=== PATIENT | male | born 1980 | race Caucasian/White ===

== ENCOUNTER 2020-07-20 15:15 | Outpatient (CLI) | payer OTHER ==
[2020-07-20] MEDS ORDERED: NONE PER PT (15:35)
== END 2020-07-20 23:59 | disposition home or self-care (01) ==
LOC: STAR 15:15
PROVIDERS: ATTEND Student in an Organized Health Care Education/Training Program
DX: Z20.822 Contact with and (suspected) exposure to COVID-19 (principal)
CPT/HCPCS: U0003

== ENCOUNTER 2020-07-26 07:32 | Day surgery (SDC) | payer OTHER ==
[2020-07-20 15:35] VITALS: BP 156/89
[~2020-07-26] VITALS: Ht 185.4 cm; Wt 107.0 kg
[~2020-07-26 07:32] MED LIST: NONE PER PT
[2020-07-26] MEDS ORDERED: LACTATED RINGERS 1,000 ML IV SCH (08:00)
[2020-07-26] MEDS ORDERED: CHLORHEXIDINE 15 ML UDC PO ONE (08:00)
[2020-07-26] MEDS ORDERED: MIDAZOLAM 1 MG/ML, 2ML ONE (08:31)
[2020-07-26] MEDS ORDERED: FENTANYL PF 250 MCG/5ML ONE (08:31)
[2020-07-26] MEDS ORDERED: GLYCOPYRROLATE 0.2MG/1ML, 5ML ONE (08:49)
[2020-07-26] MEDS ORDERED: PROPOFOL 10 MG/ML, 20ML ONE (08:49)
[2020-07-26] MEDS ORDERED: NEOSTIGMINE 1 MG/ML, 10ML ONE (08:49)
[2020-07-26] MEDS ORDERED: CEFAZOLIN 1,000 MG ONE (08:49)
[2020-07-26] MEDS ORDERED: ROCURONIUM 10MG/ML,5ML ONE (08:49)
[2020-07-26] MEDS ORDERED: EPINEPHRINE 1 MG/ML, 1ML ONE (10:24)
[2020-07-26] MEDS ORDERED: BUPIVACAINE/PF 0.5% ONE (10:24)
[2020-07-26] MEDS ORDERED: ACETAMINOPHEN 325 MG TABLET PO PRN (11:00)
[2020-07-26] MEDS ORDERED: LABETALOL 5MG/ML, 20ML IV PRN (11:00)
[2020-07-26] MEDS ORDERED: ONDANSETRON 2MG/ML, 2ML IVPush PRN (11:00)
[2020-07-26] MEDS ORDERED: OXYcodone 5 MG/5 ML ORAL.SOL UDC PO PRN (11:00)
[2020-07-26] MEDS ORDERED: FENTANYL PF 100 MCG/2ML IV PRN (11:00)
[2020-07-26] MEDS ORDERED: morphine SULFATE 10 MG/ML, 1ML IVPush PRN (11:00)
[2020-07-26] MEDS ORDERED: MEPERIDINE/PF 25MG/0.5ML IVPush PRN (11:00)
[2020-07-26] MEDS ORDERED: hydrALAzine 20 MG/ML, 1ML IV PRN (11:00)
[2020-07-26] MEDS ORDERED: FENTANYL PF 100 MCG/2ML ONE (11:38)
[2020-07-26] MEDS ORDERED: HYDROmorphone 1 MG/ML, 1ML INJ ONE (11:41)
[2020-07-26] MEDS ORDERED: IBUP-1222 PO (12:03)
[2020-07-26] MEDS ORDERED: OXYC5TAB2 PO (12:03)
== END 2020-07-26 15:30 | disposition home or self-care (01) ==
LOC: OUT 07:32
PROVIDERS: ATTEND Student in an Organized Health Care Education/Training Program
DX: K40.20 Bilateral inguinal hernia, without obstruction or gangrene, not specified as recurrent (principal); Z98.890 Other specified postprocedural states; Z82.49 Family history of ischemic heart disease and other diseases of the circulatory system; Z80.3 Family history of malignant neoplasm of breast
CPT/HCPCS: 49650; C1781; J0171; J0690; J1170; J2250; J2405; J2704; J2710; J3010; J7120; S2900